=== PATIENT | female | born 1980 | race Caucasian/White ===

== ENCOUNTER 2019-07-18 07:35 | Inpatient (IN) ==
[2019-07-18 08:14] LABS: URINE SOURCE CLEAN CATCH
[2019-07-18] MEDS ORDERED: TORADOL IV ONE (08:20)
[2019-07-18] MEDS ORDERED: NS 1,000 ML IV ONE (08:20)
[2019-07-18] MEDS ORDERED: ZOFRAN IV ONE ×2 (08:20→09:33)
[2019-07-18 08:24] LABS: BILIRUBIN URINE NEGATIVE (NEGATIVE); BLOOD URINE MODERATE (NEGATIVE); COLOR YELLOW; GLUCOSE URINE NEGATIVE (NEGATIVE); KETONE URINE NEGATIVE (NEGATIVE); LEUKOCYTES URINE LARGE (NEGATIVE); NITRITE URINE POSITIVE (NEGATIVE); PH URINE 6.5; PROTEIN URINE 100 mg/dL (NEGATIVE); TURBIDITY URINE HAZY (CLEAR); UROBILINOGEN URINE 2 mg/dL (NORMAL)
[2019-07-18 08:26] LABS: UR EPITHELIAL CELLS <10 /HPF (<10); URINE BACTERIA 4+ /HPF; URINE WBC TNTC /HPF (<10)
[2019-07-18 08:30] LABS: BASO# 0.02 X1000 (0.0-0.2); BASO% 0.1 % (0.0-0.8); EOS# 0.02 X1000 (0.0-0.7); EOS% 0.1 % (0.0-10.0); HEMATOCRIT 36.5 % (37.0-47.0); HEMOGLOBIN 12.4 g/dL (12.0-16.0); IMM GRAN# 0.06 X1000 (0.0-0.04); IMM GRAN% 0.4 % (0.0-0.5); LYMPH# 0.81 X1000 (1.2-3.4); LYMPH% 5.2 % (20.5-51.1); MCH 29.8 PG (27-31); MCV 87.7 FL (81-99); MONO# 2.03 X1000 (0.11-0.59); MONO% 13.1 % (1.7-9.3); MPV 11.4 FL (7.4-10.4); NEUT# 12.56 X1000 (1.4-6.5); NEUT% 81.1 % (42.2-75.2); PLT 180 X1000 (130-400); RBC 4.16 XMIL (4.2-5.4); RDW 13.3 % (11.5-14.5)
[2019-07-18 08:56] LABS: ALBUMIN 3.6 g/dL (3.5-5.0); CALCIUM 8.5 mg/dL (8.8-10.2); CREATININE 1.1 mg/dL (0.5-0.9); POTASSIUM 2.7 mmol/L (3.5-5.1); TOTAL BILIRUBIN 0.4 mg/dL (0.20-1.00); TOTAL PROTEIN 6.9 g/dL (6.3-8.3)
[2019-07-18 09:12] LABS: INR 1.17; PROTIME 15.5 Seconds (11.0-16.0)
[2019-07-18 09:13] LABS: PTT 34.5 Seconds (22.3-41.8)
--- NOTE | 2019-07-18 09:19 | Diag Imaging Result Doc PS360 ---
EXAM: CT RENAL STONE SEARCH HISTORY: pain TECHNIQUE: This exam was performed using automated exposure control, adjustment of mA or kV according to patient size, and/or use of iterative reconstruction technique. COMPARISON: None. FINDINGS: Lung bases: Unremarkable. Limited evaluation of the unenhanced liver, spleen, pancreas, adrenal glands, kidneys and visualized bowel are unremarkable. Status post cholecystectomy. Kidneys/Ureter/Bladder: The right kidney is enlarged with perinephric soft tissue stranding and fluid. The soft tissue stranding abuts a normal caliber retrocecal air-filled appendix. The adjacent cecum and terminal ileum appear normal. No urolithiasis is appreciated. Differential diagnosis would include pyelonephritis, renal vein thrombosis, or a recently passed stone. Evaluation is limited on this noncontrasted study. There are phleboliths within the pelvis. Left kidney appears normal. Unenhanced urinary bladder is unremarkable No evidence for bowel obstruction. Retroperitoneum: Normal caliber aorta. No pneumoperitoneum is identified. Unenhanced reproductive organs are grossly unremarkable. There are bilateral pars interarticularis defects at L5 with grade 2 spondylolisthesis of L5 on S1. IMPRESSION: 1.Enlarged right kidney with perinephric stranding considered indeterminate. No urolithiasis. Considerations would include acute pyelonephritis, recently passed stone, or other acute primary renal disease. 2.Perinephric soft tissue stranding abuts the retrocecal appendix. Acute appendicitis is thought to be unlikely given the appearance. 3.Bilateral L5 pars interarticularis defects with grade 2 spondylolisthesis. Electronically signed by Jillian Fong 07/18/2019 9:17 AM
[2019-07-18 09:22] LABS: BANDS 2 % (0-1); EOS 2 % (1-10); LYMPHS 6 % (21-51); MONO 10 % (1-9); SEGS 80 % (42-75)
[2019-07-18] MEDS ORDERED: LR 1,000 ML IV ONE (09:31)
[2019-07-18] MEDS ORDERED: VANCOMYCIN 1 GM/NS 1 GM/250 ML IVPB IV ONE (09:32)
[2019-07-18] MEDS ORDERED: ROCEPHIN 1 GM in NS 50 ML IV ONE (09:32)
[2019-07-18] MEDS ORDERED: DILAUDID IV ONE (09:33)
[2019-07-18] MEDS ORDERED: POTASSIUM CHLORIDE 40 MEQ/SWI 40 MEQ/100 ML IVPB IV ONE (09:33)
[2019-07-18] MEDS: POTASSIUM CHLORIDE 20 MEQ/SWI 20 MEQ/100 ML IVPB IV SCH ×2 (10:17→13:50)
[2019-07-18 10:27] LABS: CK INDEX 0.5 (0.0-2.5)
--- NOTE | 2019-07-18 10:40 | PROVIDER DOCUMENTATION ---
This chart was entered by Asha Castañeda Scribe, acting as scribe for Saul Sampson MD. HPI-General Adult - General Chief Complaint: SEPSIS ALERT - P Stated Complaint: RIGHT SIDE PAIN Time Seen by Provider: 07/18/19 08:34 Source: patient Allergies/Adverse Reactions: Patient Allergies Allergy/AdvReac Type Severity Reaction Status Date / Time metoclopramide HCl * Allergy Mild RASH Verified 07/18/19 08:17 [From Reglan] Home Medications: Home Medication List Medication Instructions Recorded Confirmed Last Taken Type Quetiapine Fumarate [Seroquel] 200 mg PO HS #7 tab 05/27/19 07/18/19 Unknown Rx Amphetamine Salts E.r. [Adderall 30 mg PO DAILY 07/18/19 07/18/19 Unknown History Xr] - History of Present Illness -Gen Adult Nature of Presenting Problems: Patient is a 38 year old female who presents with pain to right side abdomen and right flank. States nausea, fever and chills with pain. Reports symptoms started 3 days ago. Location of Pain/Injury: reports: abdomen (RUQ and RLQ), other (right flank) Pain Radiation: reports: no radiation Quality of Pain: reports: aching Severity: reports: moderate Onset/Duration: reports: 3 days ago Timing: reports: still present, constant Context/Activities at Onset: reports: light activity Associated Symptoms: reports: fever/chills (fever and chills), nausea. denies: diarrhea, genitourinary problems, vomiting Similar Symptoms Previously?: Yes Recently seen or treated by another doctor?: No Review of Systems - Adult - REVIEW OF SYSTEMS - ADULT Constitutional: reports: see HPI, chills, fever. denies: fatique Eyes: reports: no symptoms reported Ears, Nose, Mouth & Throat: reports: no symptoms reported Cardiovascular: reports: no symptoms reported Respiratory: reports: no symptoms reported Gastrointestinal: reports: see HPI, abdominal pain (RUQ and RLQ), nausea. denies: diarrhea, vomiting Genitourinary: reports: see HPI, flank pain (right). denies: dysuria, hematuria Musculoskeletal: reports: no symptoms reported Integumentary: reports: no symptoms reported Neurological: reports: no symptoms reported Psychiatric: reports: no symptoms reported Endocrine: reports: no symptoms reported Hematologic/Lymphatic: reports: no symptoms reported Allergic/Immunologic: reports: no symptoms reported All Other Systems: Reviewed and Negative Past History - Adult - PAST MEDICAL HISTORY-ADULT Review of Records: reports: Old Records Reviewed, Nursing Assessment Review, Medications Reviewed, Social history reviewed & non-contributory. Major Childhood Illnesses: reports: denies history Cardiovascular: reports: denies history Respiratory: reports: denies history Gastrointestinal: reports: denies history Obstetrical/Gynecological: reports: denies history Genitourinary: reports: denies history Musculoskeletal: reports: fibromyalgia Neurological: reports: denies history Psychiatric: reports: anxiety, bipolar, depression Endocrine/Immune: reports: denies history Other Conditions: reports: denies history - PRIOR SURGERIES/PROCEDURES Surgical/Procedure History: reports: cholecystectomy, - IMMUNIZATION STATUS Childhood Immunizations: See Nurse Assessment Flu Vaccine: See Nurse Assessment - FAMILY HISTORY Family History: reviewed, not pertinent - SOCIAL HISTORY Smoking: cigarettes, less than 1 pack/day Provider spent 3-5 mins advising pt. on dangers of tobacco.: Discussed manners to quit use, and f/u contacts for add'l counseling. Substance Use: alcohol Alcohol Use Frequency: rarely Physical Exam-General - PHYSICAL EXAM-ADULT Initial Vital Signs Reviewed: Yes - CONSTITUTIONAL General Appearance: alert, moderate distress. negative: lethargic - RESPIRATORY Respiratory: chest non-tender, lungs clear, normal breath sounds. negative: crackles, rhonchi - CARDIOVASCULAR Cardiovascular: normal peripheral pulses, tachycardia. negative: systolic mur mur - GASTROINTESTINAL (ABDOMEN) Abdominal Exam: normal bowel sounds, soft, tenderness (RUQ and RLQ). negative: rigid - MUSCULOSKELETAL Extremity: normal inspection. negative: erythema, pedal edema - SKIN Integumentary: normal color, normal turgor, warm/dry. negative: diaphoresis - NEUROLOGIC Neurologic: grossly normal. negative: aphasia, facial droop - PSYCHIATRIC Psych/Mental Status: oriented x 3. negative: anxious, paranoid Progress - PLAN OF CARE/RESULTS Progress/Plan/Lab Results: Vital Signs - 8 hr 07/18/19 07:42 07/18/19 08:53 07/18/19 09:23 Temperature 99.7 F H 99.1 F Pulse Rate 123 H 106 H Respiratory Rate 20 20 Blood Pressure 121/77 115/84 O2 Sat by Pulse Oximetry 95 97 Bedside Urine ED: Urine Bedside Start: 07/18/19 08:04 Freq: NOW Status: Active Protocol: Activity Type Activity Date Activity User E-Sign Co-Sign Detail Recorded Client Recorded Date Recorded By Document 07/18/19 08:13 [id number] 07/18/19 08:14 [id number] 07/18/19 08:13 Point of Care [Bedside Point of Care] -Lot # [id number] - Results Negative -Control Line Visible? Yes Laboratory Results - last 24 hr 07/18/19 07/18/19 07/18/19 08:00 08:13 08:13 WBC 15.50 H RBC 4.16 L Hgb 12.4 Hct 36.5 L MCV 87.7 MCH 29.8 MCHC 34.0 RDW Std Deviation 13.3 Plt Count 180 MPV 11.4 H Immature Gran % (Auto) 0.4 Neut % (Auto) 81.1 H Lymph % (Auto) 5.2 L [place] % (Auto) 13.1 H Eos % (Auto) 0.1 Baso % (Auto) 0.1 Immature Gran # (Auto) 0.06 H Neut # (Auto) 12.56 H Lymph # (Auto) 0.81 L [place] # (Auto) 2.03 H Eos # (Auto) 0.02 Baso # (Auto) 0.02 Segmented Neutrophils 80 H Band Neutrophils 2 H Lymphocytes 6 L Monocytes 10 H Eosinophils 2 PT INR PTT (Actin FS) Sodium 135 L Potassium 2.7 L Chloride 97 L Carbon Dioxide 25 Anion Gap 13 BUN 5 L Creatinine 1.1 H Estimated GFR/1.73 m2 56 BUN/Creatinine Ratio 5 Glucose 133 H Calculated Osmolality 269 Calcium 8.5 L Total Bilirubin 0.40 AST 31 H ALT 67 H Alkaline Phosphatase 84 Creatine Kinase Troponin T Total Protein 6.9 Albumin 3.6 Globulin 3.0 Albumin/Globulin Ratio 1.0 Urine Source CLEAN CATCH Urine Color YELLOW Urine Turbidity HAZY Urine pH 6.5 Ur Specific [place] 1.020 Urine Protein 100 A Ur Glucose (Stick) NEGATIVE Ur Ketones (Stick) NEGATIVE Urine Blood MODERATE A Urine Nitrite POSITIVE A Urine Bilirubin NEGATIVE Urobilinogen Dipstick 2 A Urine Leukocytes LARGE A Urine WBC (Auto) TNTC A Urine RBC (Auto) 10-20 A U Epithel Cells (Auto) <10 Urine Bacteria (Auto) 4+ 07/18/19 07/18/19 07/18/19 08:13 08:13 08:13 WBC RBC Hgb Hct MCV MCH MCHC RDW Std Deviation Plt Count MPV Immature Gran % (Auto) Neut % (Auto) Lymph % (Auto) [place] % (Auto) Eos % (Auto) Baso % (Auto) Immature Gran # (Auto) Neut # (Auto) Lymph # (Auto) [place] # (Auto) Eos # (Auto) Baso # (Auto) Segmented Neutrophils Band Neutrophils Lymphocytes Monocytes Eosinophils PT 15.5 INR 1.17 PTT (Actin FS) 34.5 Sodium Potassium Chloride Carbon Dioxide Anion Gap BUN Creatinine Estimated GFR/1.73 m2 BUN/Creatinine Ratio Glucose Calculated Osmolality Calcium Total Bilirubin AST ALT Alkaline Phosphatase Creatine Kinase 207 H Troponin T < 0.010 Total Protein Albumin Globulin Albumin/Globulin Ratio Urine Source Urine Color Urine Turbidity Urine pH Ur Specific [place] Urine Protein Ur Glucose (Stick) Ur Ketones (Stick) Urine Blood Urine Nitrite Urine Bilirubin Urobilinogen Dipstick Urine Leukocytes Urine WBC (Auto) Urine RBC (Auto) U Epithel Cells (Auto) Urine Bacteria (Auto) Orders Category Date Time Status Cardiac Monitoring DIRECTED Care 07/18/19 08:58 Active ED: Urine Bedside NOW Care 07/18/19 08:04 Active IV Insertion ORDERED Care 07/18/19 08:58 Completed Notify MD of + Sepsis Screen NOW Care 07/18/19 08:58 Active Saline Loc NOW Care 07/18/19 08:[address] RENAL STONE SEARCH [CT] Stat Exams 07/18/19 08:20 Completed BLOOD CULTURE [BLDCUL] Stat Lab 07/18/19 09:22 Ordered CBC WITH DIFF [HEME] Stat Lab 07/18/19 08:13 Completed CK PROFILE [SP CHEM] Stat Lab 07/18/19 08:13 Results CMP [COMPREHENSIVE METABOLIC PANEL] [CHEM] Stat Lab 07/18/19 08:13 Completed LACTATE, PLASMA [CHEM] Lab 07/18/19 09:20 Received LACTATE, PLASMA [CHEM] Lab 07/18/19 12:00 Uncollected LACTATE, PLASMA [CHEM] Lab 07/18/19 15:00 Uncollected PROTIME WITH INR [COAG] Stat Lab 07/18/19 08:13 Completed PTT [COAG] Stat Lab 07/18/19 08:13 Completed TROPONIN T Stat Lab 07/18/19 08:13 Completed UA [URINALYSIS W/POSS RFLX CULT] [URINALYSIS] Stat Lab 07/18/19 08:00 Completed URINE CULTURE [RM] Routine Lab 07/18/19 08:53 Ordered 0.9% Sodium Chloride Inj [Ns] 1,000 ml Med 07/18/19 08:20 Discontinued IV 999 mls/hr CefTRIAXONE [Rocephin] 1 gm Med 07/18/19 09:32 Active 0.9% Sodium Chloride Inj [Ns] 50 ml IV NOW Hydromorphone [Dilaudid] Med 07/18/19 09:33 Discontinued 1 mg IV NOW ONE Ketorolac [Toradol] Med 07/18/19 08:20 Discontinued 30 mg IV NOW ONE Lactated Ringers Inj [Lr] 1,000 ml Med 07/18/19 09:31 Active IV 999 mls/hr Ondansetron [Zofran] Med 07/18/19 08:20 Discontinued 4 mg IV NOW ONE Ondansetron [Zofran] Med 07/18/19 09:33 Discontinued 4 mg IV NOW ONE Potassium Chloride 40 Meq/Swi Med 07/18/19 09:33 Active 40 meq in 100 ml IV ONCE Vancomycin 1 gm/Ns Med 07/18/19 09:32 Active 1 gm in 250 ml IV NOW Result Diagrams: 07/18/19 08:13 07/18/19 08:13 - CT/MRI 1 CT Study: Renal Stone Impression: See EMR Report ( EXAM: CT RENAL STONE SEARCH HISTORY: pain TECHNIQUE: This exam was performed using automated exposure control, adjustment of mA or kV according to patient size, and/or use of iterative reconstruction technique. COMPARISON: None. FINDINGS: Lung bases: Unremarkable. Limited evaluation of the unenhanced liver, spleen, pancreas, adrenal glands, kidneys and visualized bowel are unremarkable. Status post cholecystectomy. Kidneys/Ureter/Bladder: The right kidney is enlarged with perinephric soft tissue stranding and fluid. The soft tissue stranding abuts a normal caliber retrocecal air-filled appendix. The adjacent cecum and terminal ileum appear normal. No urolithiasis is appreciated. Differential diagnosis would include pyelonephritis, renal vein thrombosis, or a recently passed stone. Evaluation is limited on this noncontrasted study. There are phleboliths within the pelvis. Left kidney appears normal. Unenhanced urinary bladder is unremarkable No evidence for bowel obstruction. Retroperitoneum: Normal caliber aorta. No pneumoperitoneum is identified. Unenhanced reproductive organs are grossly unremarkable. There are bilateral pars interarticularis defects at L5 with grade 2 spondylolisthesis of L5 on S1. IMPRESSION: 1.Enlarged right kidney with perinephric stranding considered indeterminate. No urolithiasis. Considerations would include acute pyelonephritis, recently passed stone, or other acute primary renal disease. 2.Perinephric soft tissue stranding abuts the retrocecal appendix. Acute appendicitis is thought to be unlikely given the appearance. 3.Bilateral L5 pars interarticularis defects with grade 2 spondylolisthesis. Electronically signed by Jillian Fong 07/18/2019 9:17 AM 07/18/19916 Interpreting Physician: Jillian Fong MD Dictated Date/Time: 07/18/19902 cc: Saul Sampson MD; Ana Cristina Steve) - CONSULTS/PCP/HOSPITALIST Notification #1 *Consult/PCP/Hospitalist*: Dr. Talley Time Discussed: 10:07 Reason/Comments: Dr. Sampson consulted with Dr. Talley about patient. Consult Disposition: Admit Departure - Departure Date of Disposition Decision: 07/18/19 Time of Disposition Decision: 10:08 DIAGNOSIS: Pyelonephritis, Sepsis, Pain Leukocytosis Qualifiers: Leukocytosis type: unspecified Qualified Code(s): D72.829 - Elevated white blood cell count, unspecified Disposition: ADMITTED INPATIENT 09 Certified Medical Emergency: Emergent Condition: Stable Referrals and Follow-Ups: Ana Cristina Steve CRNP [Primary Care Provider] - - Critical Care Note This patient required my direct & personal management of CC.: No Attestation - Physician/ FLAVIO Attestation The physician spent face to face time with patient:: Yes Advanced Practice Provider documentation review:: Supervising physician onsite and consulted in the evaluation and care of this patient. The physician did have a face to face encounter with the patient. This chart was documented by the indicated scribe, (Asha Castañeda Scribe) and accurately reflects the services I performed and decisions made by me, Saul Sampson MD, as attested by the provider's signature.
[2019-07-18] MEDS ORDERED: PRILOSEC ONE (12:11)
[2019-07-18] MEDS ORDERED: NS 1,000 ML ONE (12:13)
[2019-07-18] MEDS: NS 1,000 ML IV SCH ×3 (12:19→21:01)
[2019-07-18] MEDS: PRILOSEC PO SCH (12:20)
[2019-07-18] MEDS: MERREM 1 GM in NS 50 ML IV SCH ×2 (12:31→19:31)
[2019-07-18] MEDS: LOVENOX SUBQ SCH (13:50)
[2019-07-18] MEDS: TORADOL IV SCH ×2 (13:50→20:50)
[2019-07-18] MEDS ORDERED: FLU VACCINE IM ONE (15:15)
[2019-07-18] MEDS: NICODERM PATCH TD SCH (15:27)
[2019-07-18] MEDS: ADDERALL XR PO SCH (15:54)
[2019-07-18] MEDS: MORPHINE IV PRN ×2 (17:54→23:12)
--- NOTE | 2019-07-18 18:44 | HISTORY AND PHYSICAL ---
CHIEF COMPLAINT: Right flank pain. HISTORY OF PRESENT ILLNESS: This is a 38-year-old female with past medical history of attention deficit disorder, insomnia, and depression who presented to the emergency department complaining of three-day history of right flank pain. She noticed that problem that was getting progressively worse as well as two days of fever, chills, nausea, and vomiting. Over the last four to five days she noted that her appetite was very poor, not eating well, not drinking also no water. Today upon ER evaluation, she was found to have a right pyelonephritis, so she is going to be admitted for further treatment. PAST MEDICAL HISTORY: 1. Attention deficit disorder. 2. Insomnia. 3. Depression. PAST SURGICAL HISTORY: Cholecystectomy 10 years ago. ALLERGIES: Reglan. SOCIAL HISTORY: The patient drinks alcohol socially. She smokes between half to one pack of cigarettes per day. She started smoking at age 15. She reports using marijuana occasionally. She lives with two daughters. She is not . REVIEW OF SYSTEMS: 11 systems were reviewed and all symptoms are related to flank pain. PHYSICAL EXAMINATION: VITAL SIGNS: Temperature 99.1 degrees, heart rate 106, respiratory rate 20, blood pressure 115/84, O2 saturation 97% on room air. GENERAL: This is a 38-year-old, female lying in bed, in no acute distress. HEENT: Head is normocephalic, atraumatic. Mucous membranes dry. Pupils equal, round, reactive to light and accommodation. NECK: No JVD noted. No carotid bruits. No lymphadenopathy. No thyromegaly. CARDIOVASCULAR: S1, S2 heard. No murmurs, gallops. Tachycardic but no murmurs, gallops, or rubs noted. RESPIRATORY: Exam clear bilaterally to auscultation. No work of breathing or using accessory muscles. ABDOMEN: Soft, nontender to palpation. Bowel sounds present. No organomegaly. EXTREMITIES: No clubbing, cyanosis, or edema. Peripheral pulses present in both legs. NEUROLOGICAL: The patient is alert oriented x3. Moves four extremities. LABORATORY DATA: White cell count 15.5, hemoglobin 12.4, hematocrit 36.5, platelets 180,000. BMP reveals sodium of 135, potassium 2.7, creatinine 1.1, glucose 133. IMAGING: The renal CT showed enlarged right kidney with perinephric stranding. No urolithiasis. ASSESSMENT AND PLAN: 1. Sepsis secondary to right pyelonephritis. The patient is going to be started on intravenous fluids and in this case meropenem 1 gram intravenously ever eight hours as well. We will also provide medication for nausea, vomiting and pain. The patient is septic and tachycardic, so we will monitor this patient closely. Blood culture and urine culture has been drawn. Will follow results. 2. Attention deficit disorder. We will continue with Adderall. 3. Insomnia and depression disorder. We will continue home medications. 4. Disposition. We will continue to monitor this patient closely. cc: Manuel Whiting MD
[2019-07-18] MEDS: ZOFRAN IV PRN ×2 (18:58→23:12)
[2019-07-18] MEDS: TYLENOL PO PRN (19:02)
[2019-07-18] MEDS: SEROQUEL PO SCH (20:50)
[2019-07-19] MEDS: NS 1,000 ML IV SCH ×6 (00:16→20:27)
[2019-07-19] MEDS: MERREM 1 GM in NS 50 ML IV SCH ×3 (02:57→20:27)
[2019-07-19] MEDS: TORADOL IV SCH ×4 (02:57→20:26)
[2019-07-19] MEDS: MORPHINE IV PRN ×4 (04:51→23:16)
[2019-07-19 06:14] LABS: BLOOD TYPE ARTERIAL; SAMPLE BLOOD
[2019-07-19 06:15] LABS: BE -2.4 mmoll (-3.0-3.0); METHB 1.5 % (0.0-1.5); O2(CT) 16.7 mL/dL (15.0-23.0); O2HB 95.8 % (95.0-99.0); PCO2(98.6) 33 mmHg (35-45); PO2(98.6) 99 mmHg (60-100); SAO2 98.9 % (95.0-100.0); THB 12.3 g/dL (11.5-17.4); pH(98.6) 7.42 (7.35-7.45)
[2019-07-19 06:19] LABS: MODALITY ROOM AIR
[2019-07-19 06:20] LABS: ALLEN TEST YES
[2019-07-19 06:39] LABS: BASO# 0.02 X1000 (0.0-0.2); BASO% 0.2 % (0.0-0.8); EOS# 0.24 X1000 (0.0-0.7); EOS% 2.2 % (0.0-10.0); HEMATOCRIT 32.4 % (37.0-47.0); HEMOGLOBIN 10.7 g/dL (12.0-16.0); IMM GRAN# 0.04 X1000 (0.0-0.04); IMM GRAN% 0.4 % (0.0-0.5); LYMPH# 1.05 X1000 (1.2-3.4); LYMPH% 9.4 % (20.5-51.1); MCH 29.3 PG (27-31); MCV 88.8 FL (81-99); MONO% 9.9 % (1.7-9.3); MPV 12.9 FL (7.4-10.4); NEUT# 8.68 X1000 (1.4-6.5); NEUT% 77.9 % (42.2-75.2); PLT 170 X1000 (130-400); RBC 3.65 XMIL (4.2-5.4); RDW 13.6 % (11.5-14.5); WBC 11.13 X1000 (4.8-10.8)
[2019-07-19 07:14] LABS: AGAP 11; BUN 8 mg/dL (8-22); CALCIUM 7.2 mg/dL (8.8-10.2); CHLORIDE 108 mmol/L (98-107); COSMO 276; ESTIMATED GFR > 60; GLUCOSE 128 mg/dL (70-104); POTASSIUM 3.2 mmol/L (3.5-5.1); SODIUM 138 mmol/L (136-145); TCO2 20 mmol/L (25-35)
[2019-07-19] MEDS ORDERED: KLOR-CON PO ONE (08:51)
[2019-07-19] MEDS: NICODERM PATCH TD SCH (09:15)
[2019-07-19] MEDS: PRILOSEC PO SCH (09:16)
[2019-07-19] MEDS: ADDERALL XR PO SCH (09:16)
--- NOTE | 2019-07-19 11:50 | Diag Imaging Result Doc PS360 ---
EXAM: CHEST-2 VIEWS INDICATION: persistent cough, sob TECHNIQUE: 2 views COMPARISON: 01/25/2016 FINDINGS: The lungs are grossly clear. There is no discrete pleural fluid collection or pneumothorax. The cardiomediastinal silhouette and central vasculature are grossly unremarkable. IMPRESSION: No evidence of acute pathology by plain radiograph. Electronically signed by Florentino Flores 07/19/2019 11:48 AM
[2019-07-19] MEDS: LOVENOX SUBQ SCH (13:43)
--- NOTE | 2019-07-19 14:34 | PROGRESS NOTE ---
DATE: 07/19/2019 SUBJECTIVE: Patient reports having worsening cough with some whitish sputum production. Right flank pain is better but is still bothering her. Reports some chills last night and this morning. OBJECTIVE: Vital Signs: Temperature 98.2 degrees, heart rate 104, respiratory rate 18, blood pressure 130/84, O2 saturation 99% on room air. General examination: This is a 38-year-old, female lying in bed, in no acute distress. Cardiovascular: S1, S2 heard. No murmurs, gallops, or rubs. Regular rate and rhythm. Respiratory: Clear bilaterally to auscultation. No work of breathing or using accessory muscles. Abdomen: Soft, nontender to palpation. Bowel sounds present. No organomegaly. Right CVA tenderness noted. Extremities: No clubbing, cyanosis, or edema. Peripheral pulses present in both legs. Neurological: Patient is alert and oriented x3. Moves 4 extremities. LABORATORY DATA: White cell count is. 11.13, hemoglobin 10.7, hematocrit 32.4. BMP remarkable for potassium 3.3, creatinine 1.0. ASSESSMENT AND PLAN: 1. Sepsis secondary to right pyelonephritis. Clinically patient reports feeling better. We will continue with meropenem 1 g IV q.8 hours. We are awaiting results of urine culture and blood culture as well. We will continue with pain medication and IV fluids. The patient reports having persistent cough so, we will do an x-ray today. 2. Acute kidney injury, resolved. We will continue with IV fluids. 3. Disposition. We will continue to monitor this patient closely. cc: Manuel Whiting MD
[2019-07-19] MEDS: TYLENOL PO PRN (17:35)
[2019-07-19] MEDS: SEROQUEL PO SCH (22:20)
[2019-07-20] MEDS: MERREM 1 GM in NS 50 ML IV SCH (02:52)
[2019-07-20] MEDS: TORADOL IV SCH ×2 (02:53→09:13)
[2019-07-20] MEDS: MORPHINE IV PRN ×2 (04:03→06:50)
[2019-07-20] MEDS: NS 1,000 ML IV SCH ×4 (05:36→17:47)
[2019-07-20 06:11] LABS: BASO# 0.01 X1000 (0.0-0.2); BASO% 0.1 % (0.0-0.8); EOS# 0.25 X1000 (0.0-0.7); EOS% 3.3 % (0.0-10.0); HEMATOCRIT 32.8 % (37.0-47.0); HEMOGLOBIN 10.5 g/dL (12.0-16.0); IMM GRAN# 0.04 X1000 (0.0-0.04); IMM GRAN% 0.5 % (0.0-0.5); LYMPH# 1.53 X1000 (1.2-3.4); LYMPH% 20.1 % (20.5-51.1); MCH 28.8 PG (27-31); MCV 90.1 FL (81-99); MONO% 13.1 % (1.7-9.3); MPV 11.7 FL (7.4-10.4); NEUT# 4.79 X1000 (1.4-6.5); NEUT% 62.9 % (42.2-75.2); PLT 191 X1000 (130-400); RBC 3.64 XMIL (4.2-5.4); RDW 14.2 % (11.5-14.5); WBC 7.62 X1000 (4.8-10.8)
[2019-07-20 06:31] LABS: AGAP 11; BUN 5 mg/dL (8-22); CALCIUM 7.7 mg/dL (8.8-10.2); CHLORIDE 105 mmol/L (98-107); COSMO 275; CREATININE 0.9 mg/dL (0.5-0.9); ESTIMATED GFR > 60; GLUCOSE 99 mg/dL (70-104); POTASSIUM 3.2 mmol/L (3.5-5.1); SODIUM 139 mmol/L (136-145); TCO2 22 mmol/L (25-35)
[2019-07-20] MEDS ORDERED: POTASSIUM CHLORIDE 60 MEQ in NS 500 ML IV ONE (08:30)
[2019-07-20] MEDS: PRILOSEC PO SCH (09:13)
[2019-07-20] MEDS: NICODERM PATCH TD SCH (09:13)
[2019-07-20] MEDS: ADDERALL XR PO SCH (09:15)
[2019-07-20] MEDS ORDERED: ROCEPHIN 2 GM in NS 50 ML IV SCH (10:00)
[2019-07-20] MEDS: DILAUDID IV PRN ×3 (10:06→22:39)
--- NOTE | 2019-07-20 10:17 | PROGRESS NOTE ---
DATE: 07/20/2019 SUBJECTIVE: The patient reports he is still complaining of some cough and right flank pain even though the chest x-ray returned normal. No more fever or chills reported. OBJECTIVE: Vital Signs: Temperature 98.9 degrees, heart rate 115, respiratory rate 20, blood pressure 153/86, O2 saturation 100% on room air. General: This is a 38-year-old, female lying in bed, in no acute distress. Cardiovascular: S1, S2 heard. No murmurs, gallops, or rubs. Regular rate and rhythm. Respiratory: Clear bilaterally to auscultation. No work of breathing or using accessory muscles. Abdomen: Soft. Nontender to palpation. Right flank pain noted, better in comparing with admission. Neurological: Patient alert and oriented x3. Moves 4 extremities. LABORATORY DATA: White cell count 7.62, hemoglobin 10.5, hematocrit 32.8, platelets 191,000. Potassium 3.2, creatinine 0.9. ASSESSMENT: 1. Sepsis secondary to right pyelonephritis. 2. Escherichia coli bacteremia. 3. Acute kidney injury. PLAN: 1. The patient came to the hospital for right pyelonephritis. The patient is on meropenem 1 g IV q.8 hours. We have checked urine culture and blood culture and both are positive for Escherichia coli. I think at this point we are going to deescalate antibiotics. Will stop meropenem. We will start ceftriaxone 2 g IV q.24 hours. We will continue with IV fluids. 2. Acute kidney injury. Completely resolved. We are going to check urine culture. If that is normal after 2 days, then we will let this patient go. cc: Manuel Whiting MD
[2019-07-20] MEDS: DUONEB (A & A) INH SCH ×4 (11:03→23:30)
[2019-07-20] MEDS: LOVENOX SUBQ SCH (13:15)
[2019-07-20] MEDS: ZOFRAN IV PRN ×2 (17:47→22:39)
[2019-07-20] MEDS: TYLENOL PO PRN (18:52)
[2019-07-20] MEDS ORDERED: VANCOMYCIN IV PER PHARMACY MISC SCH (20:45)
[2019-07-20] MEDS: CARDIZEM PO SCH (21:16)
[2019-07-20] MEDS: SEROQUEL PO SCH (22:39)
[2019-07-20] MEDS: MAXIPIME 1 GM in NS 50 ML IV SCH (22:40)
[2019-07-21] MEDS: VANCOMYCIN 1 GM/NS 1 GM/250 ML IVPB IV SCH ×2 (00:33→01:45)
[2019-07-21] MEDS: DILAUDID IV PRN ×6 (01:44→21:16)
[2019-07-21] MEDS: CARDIZEM PO SCH ×4 (01:44→21:23)
[2019-07-21] MEDS: ZOFRAN IV PRN ×2 (01:44→09:47)
[2019-07-21] MEDS: TYLENOL PO PRN ×4 (02:56→22:33)
[2019-07-21] MEDS: DUONEB (A & A) INH SCH ×2 (03:08→08:02)
[2019-07-21 06:06] LABS: BASO# 0.01 X1000 (0.0-0.2); BASO% 0.1 % (0.0-0.8); EOS# 0.11 X1000 (0.0-0.7); EOS% 1.2 % (0.0-10.0); HEMOGLOBIN 10.2 g/dL (12.0-16.0); IMM GRAN# 0.02 X1000 (0.0-0.04); IMM GRAN% 0.2 % (0.0-0.5); LYMPH# 1.32 X1000 (1.2-3.4); LYMPH% 14.5 % (20.5-51.1); MCH 28.9 PG (27-31); MCHC 32.9 g/dL (33-37); MCV 87.8 FL (81-99); MONO# 1.13 X1000 (0.11-0.59); MONO% 12.4 % (1.7-9.3); MPV 12.3 FL (7.4-10.4); NEUT# 6.53 X1000 (1.4-6.5); NEUT% 71.6 % (42.2-75.2); PLT 239 X1000 (130-400); RBC 3.53 XMIL (4.2-5.4); WBC 9.12 X1000 (4.8-10.8)
[2019-07-21 06:14] LABS: AGAP 13; BUN 3 mg/dL (8-22); CALCIUM 7.6 mg/dL (8.8-10.2); CHLORIDE 102 mmol/L (98-107); COSMO 271; CREATININE 0.7 mg/dL (0.5-0.9); ESTIMATED GFR > 60; GLUCOSE 103 mg/dL (70-104); POTASSIUM 2.9 mmol/L (3.5-5.1); SODIUM 137 mmol/L (136-145); TCO2 22 mmol/L (25-35)
--- NOTE | 2019-07-21 07:11 | Diag Imaging Result Doc PS360 ---
EXAM: CT THORAX W/CONTRAST - 07/20/2019 HISTORY: cough, persistent fever TECHNIQUE: CT thorax with intravenous contrast COMPARISON: 07/19/2019 chest radiographs FINDINGS: There are patchy bilateral infiltrates. These are most prominent at the perihilar and suprahilar regions. These were not apparent on the prior chest radiographs. There is trace right pleural effusion. There is no pneumothorax. There are borderline mediastinal lymph nodes, which may be reactive. Heart size appears upper normal. There has been a cholecystectomy. IMPRESSION: Bilateral infiltrates which are suspicious for inflammatory process/pneumonia. Pulmonary edema may also be a consideration. Trace right pleural effusion. Borderline mediastinal lymph nodes, which may be reactive. The on-call radiologist provided primary results at 10:36 PM on 07/20/2019. This exam was performed using automated exposure control, adjustment of mA or kV according to patient size, and/or use of iterative reconstruction technique. Electronically signed by Josef Norman 07/21/2019 7:08 AM
[2019-07-21] MEDS ORDERED: POTASSIUM CHLORIDE 60 MEQ in NS 500 ML IV ONE (08:10)
[2019-07-21] MEDS: MAXIPIME 1 GM in NS 50 ML IV SCH ×2 (08:23→21:23)
[2019-07-21] MEDS: PRILOSEC PO SCH (08:29)
[2019-07-21] MEDS: NICODERM PATCH TD SCH (08:29)
[2019-07-21] MEDS: ADDERALL XR PO SCH (08:30)
--- NOTE | 2019-07-21 10:16 | PROGRESS NOTE ---
DATE: 07/21/2019 SUBJECTIVE: The patient, yesterday, was complaining of more cough and fever, although the right flank pain was getting better. Also, she was tachycardic and apparently was not reaction from the breathing treatments. OBJECTIVE: Vital Signs: Temperature is 98.1 degrees, heart rate 110, respiratory rate 20, blood pressure 144/82, O2 saturation 100% on 2 L nasal cannula. General Examination: This is a 38-year- old, female lying in bed, in no acute distress. Cardiovascular Examination: S1 and S2 heard. No murmurs, gallops, or rubs. Regular rate and rhythm. Respiratory Examination: Coarse breath sounds noted in both pulmonary bases. Patient is not using any accessory muscles or having work of breathing. Abdomen: Soft, nontender to palpation. Bowel sounds present. No organomegaly. Extremities: No clubbing, cyanosis, or edema. Peripheral pulses present in both legs. Neurological Examination: The patient is alert and oriented x3. Moves 4 extremities. Laboratory Data: White cell count is 9.12, hemoglobin 10.2, hematocrit 31.0, platelets 239,000. Potassium 2.9. CT of the chest showed bilateral infiltrates which are suspicious for inflammatory process and pneumonia. ASSESSMENT: 1. Sepsis secondary to right pyelonephritis. 2. Escherichia coli bacteremia. 3. Bilateral pneumonia. 4. Acute kidney injury. PLAN: Patient was, at presentation, admitted for right pyelonephritis and we found out that she has E. coli bacteremia. We have switched antibiotics to Rocephin but patient was still spiking a fever and with more pronounced cough, we decided to do a CT of the chest with results as above. At this point, we are going to continue with vancomycin and cefepime. We have repeated blood cultures. We will stop IV fluids because patient is eating better. We will continue to monitor this patient closely. We will see what those new blood cultures show. We will stop DuoNeb and we will change to Xopenex q.4 hours scheduled. cc: Manuel Whiting MD
[2019-07-21] MEDS: XOPENEX NEB INH SCH ×4 (11:48→22:58)
[2019-07-21] MEDS: ATROVENT NEB INH SCH ×4 (11:48→22:58)
[2019-07-21] MEDS: LOVENOX SUBQ SCH (13:45)
[2019-07-21] MEDS: ROBITUSSIN-DM PO PRN ×3 (13:46→21:25)
[2019-07-21] MEDS: VANCOMYCIN 1,200 MG in NS 250 ML IV SCH ×2 (14:49→23:37)
[2019-07-21] MEDS: SEROQUEL PO SCH (21:23)
[2019-07-21] MEDS: XOPENEX NEB ONE (22:58)
[2019-07-22] MEDS: DILAUDID IV PRN ×2 (02:01→06:41)
[2019-07-22] MEDS: CARDIZEM PO SCH ×4 (02:01→21:46)
[2019-07-22] MEDS: ROBITUSSIN-DM PO PRN ×4 (02:57→19:58)
[2019-07-22] MEDS: ATROVENT NEB INH SCH ×6 (03:15→23:02)
[2019-07-22] MEDS: XOPENEX NEB INH SCH ×6 (03:18→23:02)
[2019-07-22] MEDS: XOPENEX NEB ONE (03:19)
[2019-07-22] MEDS: TYLENOL PO PRN ×3 (04:35→14:30)
[2019-07-22 06:41] LABS: BASO# 0.02 X1000 (0.0-0.2); BASO% 0.2 % (0.0-0.8); EOS# 0.22 X1000 (0.0-0.7); EOS% 2.3 % (0.0-10.0); HEMATOCRIT 30.4 % (37.0-47.0); HEMOGLOBIN 9.7 g/dL (12.0-16.0); IMM GRAN# 0.02 X1000 (0.0-0.04); IMM GRAN% 0.2 % (0.0-0.5); LYMPH# 1.45 X1000 (1.2-3.4); LYMPH% 15.2 % (20.5-51.1); MCH 28.1 PG (27-31); MCHC 31.9 g/dL (33-37); MCV 88.1 FL (81-99); MONO# 1.14 X1000 (0.11-0.59); MONO% 11.9 % (1.7-9.3); MPV 11.8 FL (7.4-10.4); NEUT# 6.69 X1000 (1.4-6.5); NEUT% 70.2 % (42.2-75.2); PLT 296 X1000 (130-400); RBC 3.45 XMIL (4.2-5.4); RDW 13.9 % (11.5-14.5); WBC 9.54 X1000 (4.8-10.8)
[2019-07-22] MEDS: ZOFRAN IV PRN (06:41)
[2019-07-22] MEDS: PRILOSEC PO SCH (06:42)
[2019-07-22 06:51] LABS: AGAP 13; BUN 2 mg/dL (8-22); CALCIUM 7.9 mg/dL (8.8-10.2); CHLORIDE 102 mmol/L (98-107); COSMO 283; CREATININE 0.7 mg/dL (0.5-0.9); ESTIMATED GFR > 60; GLUCOSE 125 mg/dL (70-104); POTASSIUM 2.9 mmol/L (3.5-5.1); SODIUM 143 mmol/L (136-145); TCO2 28 mmol/L (25-35)
[2019-07-22 06:55] LABS: INR 1.03
[2019-07-22] MEDS ORDERED: KLOR-CON PO ONE (07:10)
[2019-07-22] MEDS: LEVAQUIN 750 MG/D5W 750 MG/150 ML IVPB IV SCH (08:23)
[2019-07-22 08:24] LABS: EOS 3 % (1-10); LYMPHS 12 % (21-51); MONO 8 % (1-9); SEGS 77 % (42-75)
[2019-07-22] MEDS: NICODERM PATCH TD SCH (08:24)
[2019-07-22] MEDS ORDERED: NS 0 ML ONE (09:04)
[2019-07-22] MEDS: NORCO-10 PO PRN ×3 (10:56→19:56)
[2019-07-22] MEDS: LOVENOX SUBQ SCH (14:30)
--- NOTE | 2019-07-22 21:11 | PROGRESS NOTE ---
DATE: 07/22/2019 SUBJECTIVE: Patient notes that she is feeling a little bit better. Still does not feel well. Still having some tachycardia and occasional nausea. OBJECTIVE: Vital Signs: T-max 99.5 degrees, pulse 120, BP 146/78. General: Patient is awake, alert. She is lying quietly in the bed. She is in no current respiratory distress. HEENT: Normocephalic. Neck: Supple. Cardiovascular: Tachycardia. No appreciable murmurs. Chest: Clear and nonlabored. Abdomen: Soft, nondistended. Extremities: Moves all extremities. Neurologic: No focal changes. ASSESSMENT: 1. Supraventricular tachycardia. She currently is on Cardizem. We will make sure that her Adderall is being held. 2. Sepsis, secondary to pyelonephritis. 3. Pyelonephritis. 4. Escherichia coli bacteremia. 5. Bilateral pneumonia. 6. Hypokalemia. PLAN: We are going to try and stop her intravenous Dilaudid. She is having trouble keeping her intravenous access. Thankfully, her Escherichia coli bacteremia and urinary tract infection are both highly sensitive to Levaquin. We are going to change her over to Levaquin. She has no hardware or previous surgeries, so 2 to 3 weeks of Levaquin should be adequate. We will replace her potassium and follow her heart rates. We certainly may need to increase her Cardizem. Further orders as needed. cc: Alphonso Hernandez MD
[2019-07-22] MEDS: SEROQUEL PO SCH (21:46)
[2019-07-23] MEDS: XOPENEX NEB INH SCH ×2 (03:09→07:28)
[2019-07-23] MEDS: ATROVENT NEB INH SCH ×3 (03:10→10:51)
[2019-07-23] MEDS: NORCO-10 PO PRN ×3 (03:20→11:28)
[2019-07-23] MEDS: CARDIZEM PO SCH ×2 (03:21→07:50)
[2019-07-23] MEDS: ROBITUSSIN-DM PO PRN ×3 (03:22→11:29)
[2019-07-23 06:19] LABS: AGAP 13; ALBUMIN 2.7 g/dL (3.5-5.0); ALKALINE PHOSPHATASE 157 U/L (32-104); BUN 2 mg/dL (8-22); CALCIUM 8.4 mg/dL (8.8-10.2); CHLORIDE 100 mmol/L (98-107); COSMO 276; CREATININE 0.8 mg/dL (0.5-0.9); ESTIMATED GFR > 60; GLUCOSE 114 mg/dL (70-104); GOT 21 U/L (10-30); GPT 28 U/L (10-36); SODIUM 140 mmol/L (136-145); TCO2 28 mmol/L (25-35); TOTAL PROTEIN 5.7 g/dL (6.3-8.3)
[2019-07-23] MEDS: PRILOSEC PO SCH (06:55)
[2019-07-23] MEDS ORDERED: MAGNESIUM SULFATE 2 GM/S.W.I. 2 GM/50 ML IVPB IV ONE (07:27)
[2019-07-23 07:31] VITALS: BP 129/73
[2019-07-23] MEDS: NICODERM PATCH TD SCH (08:00)
[2019-07-23] MEDS ORDERED: XOPENEX NEB INH SCH (09:07)
[2019-07-23] MEDS: LEVAQUIN 750 MG/D5W 750 MG/150 ML IVPB IV SCH (09:38)
[2019-07-23] MEDS ORDERED: KLOR-CON PO ONE ×2 (09:54→10:00)
--- NOTE | 2019-07-24 03:34 | DISCHARGE SUMMARY ---
ADMISSION DATE: 07/18/2019 DISCHARGE DATE: 07/23/2019 CONSULTATIONS: None. PERTINENT PROCEDURES: 1. Renal CT: Enlarged right kidney with perinephric stranding. Considerations would include acute pyelonephritis, recently passed stone or acute primary renal disease. Perinephric soft tissue stranding abuts the retrocele appendix. Acute appendicitis is thought to be unlikely given the appearance. 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 2[address]: Bilateral infiltrates which are suspicious for inflammatory process pneumonia. DISCHARGE DIAGNOSES: 1. Supraventricular tachycardia. Patient was placed on oral Cardizem. Her Adderall was withheld. Is currently resolved. Is being discharged home on Cardizem CD. 2. Sepsis secondary to pyelonephritis. Urine culture grew out Escherichia coli. 3. Escherichia coli bacteremia, susceptible to Levaquin. 4. Bilateral pneumonia. We will continue with oral Levaquin. 5. Hypokalemia, improved. HOSPITAL COURSE: Briefly, Ms. Mead is a 38-year-old female with a past medical history of ADD, insomnia, and depression, who came to the ED complaining of a 3-day history of right flank pain, fever, chills, nausea and vomiting. She was evaluated in the ED and found to have a right pyelonephritis and was admitted for further evaluation and treatment. She was also found to have an E. coli bacteremia. She continued to spike fevers. They checked a chest CT. She was found to have a bilateral pneumonia IV antibiotics were adjusted. She was placed on bronchodilators and aggressive pulmonary toilet. All blood cultures that have been redrawn are now showing no growth. Her white count is back to normal. She has been afebrile and is appropriate for discharge home today to complete a course of p.o. antibiotics with Levaquin at home. VITAL SIGNS: At time of her discharge, temperature is 98.3 degrees, heart rate 89, respirations 18, blood pressure 129/73, O2 is 98% on room air. DISCHARGE DIET: Regular. DISCHARGE MEDICATIONS: 1. Adderall XR 30 mg p.o. daily. 2. Tri-Sprintec 1 tablet p.o. daily. 3. Cardizem CD 120 mg p.o. daily. 4. Levaquin 500 mg p.o. daily x7 tablets. 5. [place] 10/325 q.4 hours p.r.n. pain x20 tablets. 6. Seroquel 200 mg p.o. at bedtime for 7 tablets. FOLLOWUP: Ms. Mead is being discharged back home with self care. She is to take all medications as prescribed. She is to follow up with her primary care provider, VALARIE Arana, in the next 7 to 10 days. She can return to the ED or call 911 for any worsening of symptoms. Dictated by VALARIE Osorio for Alphonso Hernandez MD cc: MD Ana Cristina Marte CRNP
--- NOTE | 2019-07-24 04:05 | DISCHARGE SUMMARY ---
ADMISSION DATE: 07/18/2019 DISCHARGE DATE: 07/23/2019 ADDENDUM: Patient was admitted to the hospital and diagnosed with sepsis secondary to pyelonephritis. She was placed on antibiotics, IV fluids. She was also noted to have tachycardia which thankfully has continued to improve. She currently is on Cardizem. We are going to discharge her home on Levaquin which her bacteremia is sensitive to. Her potassium has been replaced. She is going to continue Cardizem. Will follow up outpatient with her primary care. Please see full note. cc: Alphonso Hernandez MD
== END 2019-07-23 13:38 | disposition home or self-care (01) ==
LOC: P.ED 07:35 → P.MEDSURG 07:36 → SUATTDRO 07:36
PROVIDERS: ATTEND Family Medicine